=== PATIENT | female | born 1965 | race Caucasian/White ===

== ENCOUNTER 2017-06-03 07:52 | Emergency (ER) | payer OTHER ==
[~2017-06-03] VITALS: Ht 167.6 cm; Wt 68.0 kg
[~2017-06-03 07:52] MED LIST: CYCL-1 PO; DICL100G15 TOP
[2017-06-03] MEDS ORDERED: SUL50S LEFTEYE (08:15)
[2017-06-03] MEDS ORDERED: AZIT2.5D4 OP (08:24)
[2017-06-03 08:44] VITALS: BP 107/86
== END 2017-06-03 08:28 | disposition home or self-care (01) ==
LOC: ER 07:52
DX: H10.9 Unspecified conjunctivitis (principal); Z88.2 Allergy status to sulfonamides; Z88.0 Allergy status to penicillin; Z88.5 Allergy status to narcotic agent; Z88.1 Allergy status to other antibiotic agents; Z79.899 Other long term (current) drug therapy
CPT/HCPCS: 99283